=== PATIENT | male | born 1965 | race Caucasian/White ===

== ENCOUNTER 2018-08-18 06:41 | Day surgery (SDC) | payer BC ==
[2018-08-16 14:21] VITALS: BMI 28.2
[~2018-08-18 06:41] MED LIST: LACTATED RINGERS 1,000 ML IV SCH
[2018-08-18 07:22] VITALS: RESP 18; TEMP 97.7
[2018-08-18 07:25] LABS: Glucose,Whole Blood 116 mg/dL (75-99)
[2018-08-18] MEDS ORDERED: LIDOCAINE 1% INJ 10MG/ML (20 ML MDV) ONE (07:37)
[2018-08-18] MEDS ORDERED: PROPOFOL 10 MG/ML 20 ML VIAL IV ONE (07:37)
[2018-08-18] MEDS ORDERED: IV FLUID CONTINUATION 1,000 ML IV ONE (08:00)
--- NOTE | 2018-08-18 08:00 | P.PCN ---
Date of Procedure: 08/18/18 Procedure(s) Performed: BRIEF HISTORY: Patient is a 53-year-old pleasant white male, scheduled for an elective colonoscopy as a part of screening for colorectal neoplasia. PROCEDURE PERFORMED: Colonoscopy with biopsy. PREOPERATIVE DIAGNOSIS: Screening for colon cancer. IV sedation per Anesthesia. PROCEDURE: After informed consent was obtained, the patient, was brought into the endoscopy unit. IV sedation was administered by Anesthesia under continuous monitoring. Digital rectal examination was normal. Initially the Olympus CF- 160 flexible video colonoscope was then inserted in the rectum, gradually advanced into the cecum without any difficulty. Careful examination was performed as the scope was gradually being withdrawn. Ileocecal valve and the appendiceal orifice were visualized and appeared normal. Prep was excellent. Mucosa of the cecum, ascending colon, transverse colon, descending colon, sigmoid colon, and rectum appeared normal. In the mid rectum there was a 2-3 mm sessile polyp that was removed by cold biopsy. Retroflexion was performed in the rectum and no lesions were seen. The patient tolerated the procedure well. IMPRESSION: There was a 2-3 mm sessile mid rectal polyp status post removal by cold biopsy Rest of the colon appeared normal RECOMMENDATIONS: Findings of this examination were discussed with the patient as well as his family. He was advised to follow with the biopsy results and if the biopsy shows adenoma he can have a repeat colonoscopy in 5 years.
[2018-08-18 08:11] LABS: Glucose,Whole Blood 104 mg/dL (75-99)
[2018-08-18 08:28] VITALS: BP 149/90; PULSE 69
== END 2018-08-18 10:02 | disposition home or self-care (01) ==
LOC: ORWHC2ENDO 06:41
PROVIDERS: ATTEND Internal Medicine Gastroenterology
DX: Z12.11 Encounter for screening for malignant neoplasm of colon (principal); K62.1 Rectal polyp; E11.9 Type 2 diabetes mellitus without complications; K21.9 Gastro-esophageal reflux disease without esophagitis; Z79.899 Other long term (current) drug therapy
CPT/HCPCS: 88305; 45380; J2001; J2704

== ENCOUNTER 2018-09-30 05:58 | Inpatient (IN) | payer BC ==
[2018-09-30] MEDS ORDERED: MORPHINE SULFATE 4 MG/ML SYRINGE IV STA (06:23)
[2018-09-30] MEDS ORDERED: ASPIRIN 81 MG PO STA (06:23)
[2018-09-30 06:24] LABS: Basophils # (A) 0.1 k/uL (0-0.2); Basophils % (A) 1 %; Eosinophils # (A) 0.3 k/uL (0-0.7); Eosinophils % (A) 4 %; HCT 44.6 % (39.0-53.0); Lymphocytes # (A) 1.9 k/uL (1.0-4.8); Lymphocytes % (A) 23 %; MCH 29.8 pg (25.0-35.0); MCHC 33.5 g/dL (31.0-37.0); MCV 88.7 fL (80.0-100.0); Mean Platelet Volume 7.5; Monocytes # (A) 0.4 k/uL (0-1.0); Monocytes % (A) 5 %; Neutrophils # (A) 5.3 k/uL (1.3-7.7); Neutrophils % (A) 65 %; Platelet Count 185 k/uL (150-450); RBC 5.02 m/uL (4.30-5.90); RDW 13.1 % (11.5-15.5); WBC 8.1 k/uL (3.8-10.6)
--- NOTE | 2018-09-30 06:27 | ED ---
Chest Pain HPI - General Chief Complaint: Chest Pain Stated Complaint: chest pain Time Seen by Provider: 09/30/18 06:16 Source: patient Mode of arrival: ambulatory Limitations: no limitations - History of Present Illness Initial Comments: This patient is 53-year-old man who presents to be evaluated for chest pain. The pain had started yesterday at approximately noon after he had eaten his lunch at work. He indicates the pain is substernal and radiates to his back. He describes it as aching and it has been intermittent. He states that also when the pain came on he had a coughing episode and did vomit once. Since that time he has not had any associated symptoms, no fever or chills, no cough or dyspnea, no nausea or vomiting. There has been no diaphoresis. The pain has been intermittent, lasting about 30 minutes and then resolving and has recurred a number of times. States pain is currently severe. He has not noted any worsening or relieving factors. MD Complaint: chest pain Onset/Timin -: hour(s) Onset: after eating Pain Location: substernal Pain Radiation: back Severity: severe Quality: aching Consistency: intermittent Improves With: nothing Worsens With: nothing Treatments Prior to Arrival: none - Related Data Home Medications Medication Instructions Recorded Confirmed Insulin Degludec [Tresiba 40 unit SQ HS 08/16/18 09/30/18 Flextouch U-100] Omeprazole 20 mg PO AC-BRKFST 08/16/18 09/30/18 Insulin Aspart [NovoLOG Flexpen] 8 - 10 units SQ AC-TID 09/30/18 09/30/18 Previous Rx's Medication Instructions Recorded Aspirin 81 mg PO DAILY chew 10/02/18 Atorvastatin [Lipitor] 80 mg PO HS #90 tab 10/02/18 Lisinopril [Zestril] 5 mg PO DAILY #90 tab 10/02/18 Metoprolol Tartrate [Lopressor] 25 mg PO BID #180 tab 10/02/18 Nitroglycerin Sl Tabs [Nitrostat] 0.4 mg SUBLINGUAL Q5M PRN #25 tab 10/02/18 Spironolactone [Aldactone] 25 mg PO DAILY #90 tab 10/02/18 Ticagrelor [Brilinta] 90 mg PO BID #180 tab 10/02/18 Allergies Allergy/AdvReac Type Severity Reaction Status Date / Time No Known Allergies Allergy Verified 09/30/18 07:11 Review of Systems ROS Statement: Those systems with pertinent positive or pertinent negative responses have been documented in the HPI. ROS Other: All systems not noted in ROS Statement are negative. Constitutional: Denies: fever, chills Respiratory: Reports: as per HPI, cough. Denies: dyspnea, wheezes, hemoptysis Cardiovascular: Reports: chest pain. Denies: palpitations, orthopnea, edema, syncope Gastrointestinal: Reports: vomiting. Denies: abdominal pain, nausea, diarrhea, melena, hematochezia Genitourinary: Denies: dysuria, hematuria Musculoskeletal: Reports: as per HPI, back pain Skin: Denies: rash Neurological: Denies: headache, weakness, numbness EKG Findings - EKG Results: EKG: interpreted by TRACY, sinus rhythm (Rate 91 bpm), normal axis - Blocks, Economy, Hypertrophy, ST Abn: AV and intraventricular conduction: right bundle branch block (fixed/ intermittent, complete/incomplete) (Incomplete) Repolarization changes or abnormalities: nonspecific abnormality, ST segment, and/or T wave Past Medical History Past Medical History: Diabetes Mellitus History of Any Multi-Drug Resistant Organisms: None Reported Past Surgical History: Orthopedic Surgery Additional Past Surgical History / Comment(s): foot surgery X 2 Past Anesthesia/Blood Transfusion Reactions: No Reported Reaction Past Psychological History: No Psychological Hx Reported Smoking Status: Current every day smoker Past Alcohol Use History: Occasional Past Drug Use History: None Reported - Past Family History Father Family Medical History: Cancer Additional Family Medical History / Comment(s): Throat CA General Exam Limitations: no limitations General appearance: alert, in no apparent distress Head exam: Present: atraumatic, normocephalic Eye exam: Present: normal appearance. Absent: scleral icterus, conjunctival injection ENT exam: Present: normal oropharynx Respiratory exam: Present: normal lung sounds bilaterally. Absent: respiratory distress, wheezes, rales, rhonchi, stridor, chest wall tenderness Cardiovascular Exam: Present: regular rate, normal rhythm, normal heart sounds. Absent: systolic murmur, diastolic murmur, rubs, gallop GI/Abdominal exam: Present: soft. Absent: distended, tenderness, guarding, rebound, mass Extremities exam: Present: normal inspection, normal capillary refill. Absent: pedal edema, calf tenderness Back exam: Present: normal inspection. Absent: CVA tenderness (R), CVA tenderness (L), vertebral tenderness Neurological exam: Present: alert Skin exam: Present: warm, dry, intact, normal color. Absent: rash Course Vital Signs 09/30/18 09/30/18 09/30/18 06:02 06:10 06:43 Temperature 98.4 F Pulse Rate 89 96 Pulse Rate [ 75 Supine] Respiratory 19 18 Rate Blood Pressure 155/90 127/83 O2 Sat by Pulse 98 97 Oximetry 09/30/18 09/30/18 09/30/18 07:24 07:35 07:40 Temperature Pulse Rate 89 89 94 Pulse Rate [ Supine] Respiratory 18 18 18 Rate Blood Pressure 143/100 152/79 137/77 O2 Sat by Pulse 95 97 98 Oximetry Chest Pain [facility] Patient is a 53-year-old man with risk factors for coronary artery disease. He presents with symptoms also concerning for acute coronary syndrome. The patient 's initial ECG is concerning for possible elevation in V1. The patient had been here for 30 minutes and then his pain acutely worsened and a second ECG appears to show ST elevation in lead V1 and V2. The patient's case discussed with Dr. Ferguson, who is on-call and a STEMI alert is activated. Dr. Ferguson requests that we notify Dr. Rivers and he was phoned as well. Critical Care Time Critical Care Time: Yes (40 minutes) Disposition Clinical Impression: Acute coronary syndrome Disposition: ADMITTED IP TO THIS [facility] Condition: Serious
[2018-09-30 06:35] LABS: Partial Thromboplastin Time 26.5 sec (22.0-30.0); Prothrombin Time 9.7 sec (9.0-12.0)
[2018-09-30] MEDS: NITROGLYCERIN SL TABS 0.4 MG TAB SUBLINGUAL STA ×3 (06:38→07:24)
[2018-09-30 06:45] LABS: ALT 26 U/L (21-72); AST 64 U/L (17-59); Albumin 4.1 g/dL (3.5-5.0); Alkaline Phosphatase 75 U/L (38-126); Amylase 37 U/L (30-110); Anion Gap 10 mmol/L; Blood Urea Nitrogen 16 mg/dL (9-20); Calcium 9.1 mg/dL (8.4-10.2); Carbon Dioxide 22 mmol/L (22-30); Chloride 106 mmol/L (98-107); Glucose 159 mg/dL (74-99); Lipase 17 U/L (23-300); Magnesium 1.8 mg/dL (1.6-2.3); Potassium 4.4 mmol/L (3.5-5.1); Sodium 138 mmol/L (137-145); Total Bilirubin 0.9 mg/dL (0.2-1.3); Total Protein 7.3 g/dL (6.3-8.2)
[2018-09-30 07:02] LABS: Troponin I 3.1 ng/mL (0.000-0.034)
[2018-09-30] MEDS ORDERED: HEPARIN SODIUM,PORCINE 5,000 UNIT/ML 1 ML VIAL IV ONE (07:03)
[2018-09-30] MEDS ORDERED: HEPARIN SOD,PORK IN 0.45% NACL 25,000 UNIT in 0.45% NACL 1 500ML.BAG IV SCH (07:15)
--- NOTE | 2018-09-30 07:16 | XR ---
EXAM: XR Chest, 1 View CLINICAL HISTORY: ITS.REASON XR Reason: chest pain TECHNIQUE: Frontal view of the chest. COMPARISON: No relevant prior studies available. FINDINGS: Lungs: Unremarkable. No consolidation. Pleural space: Unremarkable. No pneumothorax. Heart: Unremarkable. No cardiomegaly. Mediastinum: Unremarkable. Bones/joints: Unremarkable. IMPRESSION: No acute findings.
[2018-09-30 07:17] LABS: Glucose,Whole Blood 254 mg/dL (75-99)
[2018-09-30] MEDS ORDERED: MORPHINE SULFATE 4 MG/ML SYRINGE IVP STA (07:33)
[2018-09-30] MEDS ORDERED: IV FLUID CONTINUATION 1,000 ML IV ONE (07:45)
[2018-09-30] MEDS ORDERED: LIDOCAINE 1% INJ 10MG/ML (20 ML MDV) ONE (07:48)
[2018-09-30] MEDS ORDERED: VERAPAMIL 2.5 MG/ML 2 ML AMP ONE (07:59)
[2018-09-30] MEDS ORDERED: MIDAZOLAM 2 MG/2 ML VIAL ONE ×2 (07:59→08:48)
[2018-09-30] MEDS ORDERED: MIDAZOLAM 2 MG/2 ML VIAL IVP ONE ×2 (08:03→08:49)
[2018-09-30] MEDS ORDERED: HEPARIN SODIUM 1,000 UN/ML (10ML VL) ONE (08:06)
[2018-09-30] MEDS ORDERED: LIDOCAINE 1% INJ 10MG/ML (20 ML MDV) SQ ONE (08:06)
[2018-09-30] MEDS ORDERED: VERAPAMIL SYRINGE (5 MG/10 ML) INTRAARTER ONE (08:08)
[2018-09-30] MEDS ORDERED: BIVALIRUDIN BOLUS 250 MG/50 ML IV ONE (08:18)
[2018-09-30] MEDS ORDERED: BIVALIRUDIN 250 MG in SODIUM CHLORIDE 0.9% 50 ML IV ONE (08:19)
[2018-09-30] MEDS ORDERED: NITROGLYCERIN 1000MCG/10ML SYRINGE INTRACORON ONE (08:34)
[2018-09-30] MEDS: NITROGLYCERIN 1000MCG/10ML SYRINGE INTRACORON ONE ×2 (08:35→08:41)
[2018-09-30] MEDS ORDERED: IOPAMIDOL-370 125ML BTL INJ ONE (08:50)
[2018-09-30] MEDS ORDERED: TICAGRELOR 90 MG TAB ONE (08:55)
[2018-09-30] MEDS ORDERED: IOPAMIDOL-370 100ML BTL INJ ONE (09:02)
[2018-09-30] MEDS ORDERED: TICAGRELOR 90 MG TAB PO ONE (09:02)
[2018-09-30] MEDS ORDERED: ZOLPIDEM 5 MG TAB PO PRN (09:12)
[2018-09-30] MEDS ORDERED: ATROPINE SULFATE 0.1 MG/ML 10ML SYRINGE IV PRN (09:12)
[2018-09-30] MEDS ORDERED: RX INFO: IV CONTRAST WAS GIVEN 1 EACH MISC MISCELLANE PRN (09:12)
[2018-09-30] MEDS ORDERED: MAG HYDROX/AL HYDROX/SIMETH 30 ML CUP PO PRN (09:12)
[2018-09-30] MEDS ORDERED: NITROGLYCERIN SL TABS 0.4 MG TAB SUBLINGUAL PRN (09:12)
[2018-09-30] MEDS ORDERED: SODIUM CHLORIDE 0.9% 1,000 ML IV SCH (09:15)
--- NOTE | 2018-09-30 09:28 | P.CRDCN ---
History of Present Illness Consult date: 09/30/18 Chief complaint: Chest discomfort History of present illness: This is a 53-year-old gentleman with a past medical history significant for diabetes, hypertension, dyslipidemia, presented to the emergency room complaining of chest discomfort. The patient was in his usual state of health until last night when he started experiencing chest discomfort, in the mid chest, described as a shooting pain, radiating to his back, as well as radiating to his left elbow. The pain was of variable duration sometimes last for few minutes and sometimes for half an hour. No associated symptoms of shortness of breath, dizziness, nausea or vomiting, heart racing or fluttering, or syncope. 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 Because of the ongoing chest discomfort, and the EKG which showing about [address] segment elevation in V1 and V2, the patient was taken to the cardiac laborer hoisting. He underwent a heart catheterization that revealed subtotally occluded mid left anterior descending artery and he underwent successful stenting of the LAD using 2 drug-eluting stents with a good angiographic results by the end and without any complication. By the end of the procedure, the patient was chest pain-free. The patient does have a past medical history significant for diabetes and currently he is on insulin as well as hypertension and dyslipidemia. He did have surgery on his left foot after he had left foot crushed in the past. Unfortunately he smoke about one pack of cigarettes every day. He does have fairly significant family history of coronary artery disease with his mother who did have an open heart surgery in her 40s. Past Medical History Past Medical History: Diabetes Mellitus History of Any Multi-Drug Resistant Organisms: None Reported Past Surgical History: Orthopedic Surgery Additional Past Surgical History / Comment(s): foot surgery X 2 Past Anesthesia/Blood Transfusion Reactions: No Reported Reaction Past Psychological History: No Psychological Hx Reported Smoking Status: Current every day smoker Past Alcohol Use History: Occasional Past Drug Use History: None Reported - Past Family History Father Family Medical History: Cancer Additional Family Medical History / Comment(s): Throat CA Medications and Allergies Home Medications Medication Instructions Recorded Confirmed Type Insulin Degludec [Tresiba 40 unit SQ HS 08/16/18 09/30/18 History Flextouch U-100] Omeprazole 20 mg PO AC-BRKFST 08/16/18 09/30/18 History Atorvastatin [Lipitor] 20 mg PO HS 09/30/18 09/30/18 History Insulin Aspart [NovoLOG Flexpen] 8 - 10 units SQ AC-TID 09/30/18 09/30/18 History Allergies Allergy/AdvReac Type Severity Reaction Status Date / Time No Known Allergies Allergy Verified 09/30/18 07:11 Physical Exam Vitals: Vital Signs Temp Pulse Pulse Resp BP Pulse Ox 09/30/18 07:40 94 18 137/77 98 09/30/18 07:35 89 18 152/79 97 09/30/18 07:24 89 18 143/100 95 09/30/18 06:43 96 18 127/83 97 09/30/18 06:10 75 09/30/18 06:02 98.4 F 89 19 155/90 98 Intake and Output 09/29/18 09/30/18 09/30/18 22:59 06:59 14:59 Intake Total 290.2 Balance 290.2 Intake: IV 290.2 Other: Weight 99.79 kg - Constitutional General appearance: no acute distress - Respiratory Respiratory: bilateral: CTA - Cardiovascular Rhythm: regular Heart sounds: normal: S1, S2 Results 09/30/18 06:00 09/30/18 06:00 Cardiac Enzymes 09/30/18 09/30/18 Range/Units 06:00 06:00 AST 64 H (17-59) U/L CK-MB (CK-2) 27.0 H (0.0-2.4) ng/mL Troponin I 3.100 H* (0.000-0.034) ng/mL Coagulation 09/30/18 Range/Units 06:00 PT 9.7 (9.0-12.0) sec APTT 26.5 (22.0-30.0) sec CBC 09/30/18 Range/Units 06:00 WBC 8.1 (3.8-10.6) k/uL RBC 5.02 (4.30-5.90) m/uL Hgb 15.0 (13.0-17.5) gm/dL Hct 44.6 (39.0-53.0) % Plt Count 185 (150-450) k/uL Comprehensive Metabolic Panel 09/30/18 Range/Units 06:00 Sodium 138 (137-145) mmol/L Potassium 4.4 (3.5-5.1) mmol/L Chloride 106 (98-107) mmol/L Carbon Dioxide 22 (22-30) mmol/L BUN 16 (9-20) mg/dL Creatinine 0.86 (0.66-1.25) mg/dL Glucose 159 H (74-99) mg/dL Calcium 9.1 (8.4-10.2) mg/dL AST 64 H (17-59) U/L ALT 26 (21-72) U/L Alkaline Phosphatase 75 (38-126) U/L Total Protein 7.3 (6.3-8.2) g/dL Albumin 4.1 (3.5-5.0) g/dL Current Medications Generic Name Dose Route Start Last Admin Trade Name Freq PRN Reason Stop Dose Admin Al Hydroxide/Mg Hydroxide 30 ml 09/30/18 09:12 Maalox PO Q4HR PRN Heartburn Aspirin 81 mg 10/01/18 09:00 Aspirin PO DAILY [facility] Atorvastatin Calcium 80 mg 09/30/18 21:00 Lipitor PO HS [facility] Atropine Sulfate 0.5 mg 09/30/18 09:12 Atropine IV ONCE PRN Symptomatic Bradycardia Heparin Sodium/Sodium Chloride 500 mls @ 19.99 mls/hr 09/30/18 07:15 07:21 25,000 unit/ Sodium Chloride IV 10.02 units/kg/hr .Q24H BEN 19.99 mls/hr Administration Protocol 10.02 UNITS/KG/HR Sodium Chloride 1,000 mls @ 100 mls/hr 09/30/18 09:15 Saline 0.9% IV 09/30/18 15:16 .Q10H [facility] Lisinopril 5 mg 10/01/18 09:00 Zestril PO DAILY [facility] Metoprolol Tartrate 25 mg 09/30/18 21:00 Lopressor PO BID [facility] Miscellaneous Information 1 each 09/30/18 09:12 Rx Info: Iv Contrast Was Given MISCELLANE 10/02/18 09:12 DAILY PRN Per Protocol Nitroglycerin 0.4 mg 09/30/18 09:12 Nitrostat SUBLINGUAL Q5M PRN Chest Pain Ticagrelor 90 mg 09/30/18 21:00 Brilinta PO BID [facility] Zolpidem Tartrate 5 mg 09/30/18 09:12 Ambien PO HS PRN Insomnia Intake and Output 09/29/18 09/30/18 09/30/18 22:59 06:59 14:59 Intake Total 290.2 Balance 290.2 Intake: IV 290.2 Other: Weight 99.79 kg 09/30/18 06:00 09/30/18 06:00 Assessment and Plan Assessment: Assessment #1 acute coronary syndrome #2 subtotally occluded mid LAD #3 status post stenting of the mid LAD #4 multiple risk factors including diabetes, hypertension, dyslipidemia #5 significant history of smoking #6 significant family history of coronary artery disease Plan #1 dual antiplatelet therapy #2 anti-ischemic medications #3 high-intensity statin #4 an echocardiogram was Doppler #5 follow-up with the patient. Thank you for allowing us participate in his care
[2018-09-30 10:23] LABS: Glucose,Whole Blood 199 mg/dL (75-99)
--- NOTE | 2018-09-30 11:36 | CC ---
CARDIAC CATHETERIZATION REPORT DATE OF SERVICE: September 30, 2018 PERFORMING PHYSICIAN: Gagan Rivers MD, material mixer. PROCEDURE PERFORMED: 1. Selective right and left coronary angiogram. 2. Successful stenting of the mid LAD using 2.75 x 18 and 2.25 x 15 mm Xience drug- eluting stent with good angiographic results and reduction of stenosis from 99% to 0%. 3. Left heart catheterization. 4. Left ventriculography. INDICATION: This is a pleasant 53-year-old gentleman who is diabetic as well as smoker as well as does have significant family history of coronary artery disease, presented to the emergency room complaining of chest discomfort that started last night. The patient continues to have chest discomfort and ischemic ST changes. Because of that, a heart catheterization emergently was advised. APPROACH: Right radial artery. COMPLICATION: None. LEVEL OF SEDATION: Moderate with sedation length of 59 minutes. PROCEDURE DESCRIPTION: After obtaining an informed consent, the patient was brought to the cardiac photo lab technician. The right radial artery was cannulated using micropuncture technique, the micropuncture wire passed easily then I placed a 6-Welsh sheath 11 cm in the right radial artery. After that I gave the patient 2 mg of verapamil IA. Selective right and left coronary angiogram was performed using JR4 catheter for the right coronary artery and JL3.5 guide for the left coronary system. After that I did intervene on the LAD. Please see a separate paragraph for that. Subsequently I did left heart catheterization and left ventriculography using 5-Welsh pigtail catheter. The procedure was completed without any complication. SELECTIVE CORONARY ANGIOGRAM: 1. The right coronary artery is a large caliber vessel and it is a dominant vessel. The RCA in the proximal portion appeared to have mild disease only. The mid RCA is normal. RCA distally appeared to be angiographically normal and bifurcates into PDA and PLV branches both appear to have mild disease only. 2. The left main is angiographically normal and is a short left main. It bifurcates into left circumflex, ramus intermedius, and left anterior descending artery. 3. Left circumflex is a large caliber vessel and it is a nondominant vessel and appeared to be angiographically normal. In the midportion gives rise into OM branch which is intermediate caliber vessel and seems to be angiographically normal. 4. The ramus intermedius is a large caliber vessel. It appears to have mild disease in the midportion. It distally bifurcates into 2 subbranches, both appeared to be angiographically normal. 5. The LAD: The proximal LAD appeared to have mild disease only. The mid LAD by the bifurcation of a large diagonal branch has a critical lesion appeared to be in the range of 99.9%. The LAD after that has a long tubular lesion appeared to be in the range of 80%-90%. The first diagonal branch appeared to be angiographically normal. The LAD distally appeared to be normal as well and becomes small to medium to become medium caliber vessel. PCI OF THE LAD: Anticoagulation was initiated using Angiomax. After engaging the LAD with JL 3.5 guiding catheter, I attempted advancing a wire to the LAD and that was a whisper wire, but the wire kept going into the ramus intermedius. I left the wire into ramus and get another whisper wire going the LAD. I had a hard time crossing the lesion in the mid LAD because of the angulation of the LAD after the diagonal. Finally I was able to get the wire to distal LAD. I did balloon angioplasty initially using 2.5 x 12 mm balloon and after that I deployed a 2.75 x 18 mm Xience drug-eluting stent where the stent was positioned under fluoroscopy guidance and deployed under its nominal pressure. After that, the following angiogram showed the lesion distal to the stent appeared to be concerning and it did not get better after I gave IC nitroglycerin. Because of that, I decided to deploy another stent. So I did deploy a 2.25 x 15 mm stent distal to the previous stent where the second stent was positioned under fluoroscopy guidance and deployed under its nominal pressure. The following angiogram showed good angiographic result. After that, I did post dilate the proximal stent using 3.0 mm NC balloon which was inflated under 18 atmospheres. The following angiogram showed good angiographic results with good flow in the LAD. The procedure was completed without any complication. HEMODYNAMICS: The left ventricular end-diastolic pressure was 18 mmHg without any significant gradient across the aortic valve. LEFT VENTRICULOGRAPHY: Left ventriculography was performed in the DILLARD projection and using a power injection. The left ventricular systolic function is impaired with EF around 35% with anterior and anteroapical and inferoapical hypokinesia. CONCLUSION: 1. Acute non ST elevation myocardial infarction. 2. Subtotally occluded mid left anterior descending artery. 3. Successful stenting of the mid LAD using 2.75 x 18 and 2.25 x 15 mm Xience drug- eluting stent with good angiographic results and reduction of stenosis from 99% to 0%. 4. Impaired left ventricular function with EF around 35% with anterior, anteroapical, and inferoapical hypokinesia. POSTPROCEDURE MANAGEMENT: 1. Dual anti-platelet therapy. 2. Risk factors modifications. 3. Follow up with the patient. ABIEL / KYLIE: [id number] /
--- NOTE | 2018-09-30 11:42 | LTR ---
DATE OF SERVICE: September 30, [address] Benítez: Mr. Aurelio Torres presented to the emergency room at [facility] with chest discomfort and was diagnosed with acute coronary syndrome. He underwent heart catheterization and was found to have subtotally occluded mid LAD which was stented with good results by the end. Thank you for allowing us to participate in his care and please do not hesitate to call if you have any questions or concerns. Sincerely, ABIEL / RADAMESN: [id number] /
[2018-09-30 12:08] LABS: Glucose,Whole Blood 197 mg/dL (75-99)
[2018-09-30] MEDS: NOVOLOG FLEXPEN SQ SCH ×2 (14:17→17:42)
[2018-09-30 17:10] LABS: Glucose,Whole Blood 175 mg/dL (75-99)
--- NOTE | 2018-09-30 17:32 | P.HPIM ---
History of Present Illness this is a pleasant 53 years old male with past medical history of diabetes mellitus on insulin therapy, and hyperlipidemia. Her presents because of chest pain., Patient states that his chest pain was centrally radiating to the back started of one-day duration, it was started after lunch that comes and goes was severe at 60/10, went up to 8-9/10 on admission however it is down now20/10 answers old. failed sharp. Associated with some elbow pain and numbness in the fingers.associated with vomiting once yesterday. No sweating, dyspnea or dizziness.patient has been evaluated by cardiology team and found to have acute coronary syndrome. He is a status post cardiac cath today which showing LAD artery disease, status post stenting.ALSO SHOWS HIM. eJECTION FRACTION AROUND 35%. Review of Systems CONSTITUTIONAL: No fever, no malaise, no fatigue. HEENT: No recent visual problems or hearing problems. Denied any sore throat. CARDIOVASCULAR: No orthopnea, PND, no palpitations, no syncope. PULMONARY: No shortness of breath, no cough, no hemoptysis. GASTROINTESTINAL: No diarrhea, no nausea, no vomiting, no abdominal pain. Normoactive bowel sounds. NEUROLOGICAL: No headaches, no weakness, no numbness. HEMATOLOGICAL: Denies any bleeding or petechiae. GENITOURINARY: Denies any burning micturition, frequency, or urgency. MUSCULOSKELETAL/RHEUMATOLOGICAL: Denies any joint pain, swelling, or any muscle pain. ENDOCRINE: Denies any polyuria or polydipsia. Past Medical History Past Medical History: Diabetes Mellitus History of Any Multi-Drug Resistant Organisms: None Reported Past Surgical History: Orthopedic Surgery Additional Past Surgical History / Comment(s): foot surgery X 2 Past Anesthesia/Blood Transfusion Reactions: No Reported Reaction Past Psychological History: No Psychological Hx Reported Smoking Status: Current every day smoker Past Alcohol Use History: Occasional Past Drug Use History: None Reported - Past Family History Father Family Medical History: Cancer Additional Family Medical History / Comment(s): Throat CA Medications and Allergies Home Medications Medication Instructions Recorded Confirmed Type Insulin Degludec [Tresiba 40 unit SQ HS 08/16/18 09/30/18 History Flextouch U-100] Omeprazole 20 mg PO AC-BRKFST 08/16/18 09/30/18 History Atorvastatin [Lipitor] 20 mg PO HS 09/30/18 09/30/18 History Insulin Aspart [NovoLOG Flexpen] 8 - 10 units SQ AC-TID 09/30/18 09/30/18 History Allergies Allergy/AdvReac Type Severity Reaction Status Date / Time No Known Allergies Allergy Verified 09/30/18 07:11 Physical Exam Vitals: Vital Signs Temp Pulse Pulse Pulse Resp BP BP 09/30/18 10:05 83 16 140/78 09/30/18 09:50 80 16 129/77 09/30/18 09:35 83 16 127/85 09/30/18 07:40 94 18 137/77 09/30/18 07:35 89 18 152/79 09/30/18 07:24 89 18 143/100 09/30/18 06:43 96 18 127/83 09/30/18 06:10 75 09/30/18 06:02 98.4 F 89 19 155/90 Pulse Ox 09/30/18 10:05 96 09/30/18 09:50 09/30/18 09:35 98 09/30/18 07:40 98 09/30/18 07:35 97 09/30/18 07:24 95 09/30/18 06:43 97 09/30/18 06:10 09/30/18 06:02 98 Intake and Output 09/29/18 09/30/18 09/30/18 22:59 06:59 14:59 Intake Total 290.2 Output Total 500 Balance -209.8 Intake: IV 290.2 Output: Urine 500 Other: Weight 99.79 kg GENERAL: The patient is alert and oriented x3, not in any acute distress. Well developed, well nourished. HEENT: Pupils are round and equally reacting to light. EOMI. No scleral icterus. No conjunctival pallor. Normocephalic, atraumatic. No pharyngeal erythema. No thyromegaly. CARDIOVASCULAR: S1 and S2 present. No murmurs, rubs, or gallops. PULMONARY: Chest is clear to auscultation, no wheezing or crackles. ABDOMEN: Soft, nontender, nondistended, normoactive bowel sounds. No palpable organomegaly. MUSCULOSKELETAL: No joint swelling or deformity. EXTREMITIES: No cyanosis, clubbing, or pedal edema. NEUROLOGICAL: Gross neurological examination did not reveal any focal deficits. SKIN: No rashes. Results CBC & Chem 7: 09/30/18 06:00 09/30/18 06:00 Labs: Abnormal Lab Results - Last 24 Hours (Table) 09/30/18 09/30/18 09/30/18 Range/Units 06:00 06:00 07:13 Glucose 159 H (74-99) mg/dL POC Glucose (mg/dL) 254 H (75-99) mg/dL AST 64 H (17-59) U/L Total Creatine Kinase 511 H (55-170) U/L CK-MB (CK-2) 27.0 H (0.0-2.4) ng/mL Troponin I 3.100 H* (0.000-0.034) ng/mL Lipase 17 L (23-300) U/L 09/30/18 Range/Units 10:18 Glucose (74-99) mg/dL POC Glucose (mg/dL) 199 H (75-99) mg/dL AST (17-59) U/L Total Creatine Kinase (55-170) U/L CK-MB (CK-2) (0.0-2.4) ng/mL Troponin I (0.000-0.034) ng/mL Lipase (23-300) U/L Assessment and Plan Assessment: non-STEMI LAD coronary artery disease, status post cardiac cath and stenting impairment systolic function with ejection fraction 35% with no dyspnea. history of diabetes mellitus History of hyperlipidemia Plan: this is a pleasant 53 years old male who presents with non-STEMI. Status post stenting of LAD. Continue with dual antiplatelet therapy. Cardiology input is appreciated. Labs and medication were reviewed.. Continue same treatment. Continue with symptomatic treatment. Resume home medication. Monitor lytes and vitals. DVT and GI prophylaxis. Further recommendations of the clinical course of the patient DVT prophylaxis: Subcutaneous heparin GI Prophylaxis: ppi Prognosis is guarded
[2018-09-30] MEDS: ATORVASTATIN 80 MG TAB PO SCH (20:30)
[2018-09-30] MEDS: METOPROLOL TARTRATE 25 MG TAB PO SCH (20:30)
[2018-09-30] MEDS: HEPARIN SODIUM,PORCINE 5,000 UNIT/ML 1 ML VIAL SQ SCH (20:30)
[2018-09-30] MEDS: TICAGRELOR 90 MG TAB PO SCH (20:30)
[2018-09-30] MEDS: TRESIBA U SQ SCH (20:35)
[2018-09-30] MEDS ORDERED: INSULIN DETEMIR 100 UNIT/ML 10 ML VIAL SQ SCH (21:00)
[2018-09-30 21:06] LABS: Glucose,Whole Blood 124 mg/dL (75-99)
[2018-10-01] MEDS: PANTOPRAZOLE 40 MG TABLET PO SCH (06:29)
[2018-10-01 06:30] LABS: Glucose,Whole Blood 103 mg/dL (75-99)
[2018-10-01 07:02] LABS: Anion Gap 7 mmol/L; Blood Urea Nitrogen 11 mg/dL (9-20); Calcium 8.9 mg/dL (8.4-10.2); Carbon Dioxide 25 mmol/L (22-30); Chloride 108 mmol/L (98-107); Glucose 109 mg/dL (74-99); Potassium 4.3 mmol/L (3.5-5.1); Sodium 140 mmol/L (137-145)
[2018-10-01] MEDS: METOPROLOL TARTRATE 25 MG TAB PO SCH ×2 (08:09→20:21)
[2018-10-01] MEDS: TICAGRELOR 90 MG TAB PO SCH ×2 (08:10→20:21)
[2018-10-01] MEDS: LISINOPRIL 5 MG TAB PO SCH (08:10)
[2018-10-01] MEDS: ASPIRIN 81 MG PO SCH (08:10)
[2018-10-01] MEDS: HEPARIN SODIUM,PORCINE 5,000 UNIT/ML 1 ML VIAL SQ SCH ×2 (08:12→20:21)
[2018-10-01] MEDS: NOVOLOG FLEXPEN SQ SCH ×3 (08:17→18:01)
[2018-10-01] MEDS: SPIRONOLACTONE 25 MG TAB PO SCH (08:49)
[2018-10-01] MEDS ORDERED: ASPIRIN 325 MG TAB PO SCH (09:00)
[2018-10-01] MEDS ORDERED: LISINOPRIL 10 MG TAB PO SCH (09:00)
[2018-10-01 11:17] LABS: Glucose,Whole Blood 117 mg/dL (75-99)
--- NOTE | 2018-10-01 12:31 | PN ---
PROGRESS NOTE Mr. Torres is a 53-year-old male who presented yesterday with an acute myocardial infarction, underwent cardiac catheterization and stenting of his LAD by Dr. Rivers. He is feeling well this morning. Denying any chest pain. He denies any dizziness. No palpitation. He denies any recurrent symptoms. He has been ambulating without difficulty. He is in sinus mechanism and continues to be on aspirin 81 mg daily, Brilinta 90 mg twice a day, Lipitor 80 mg daily, lisinopril 5 mg daily, metoprolol tartrate 25 mg twice a day, spironolactone 25 mg daily. PHYSICAL EXAMINATION: Blood pressure 130/70 with a heart rate in the 70s and 80s. LUNGS: Clear. HEART: Regular rate and rhythm S1, S2. No S3. No rub. ABDOMEN: Soft nontender. EXTREMITIES: No edema. Right radial pulse is intact. LAB DATA: Lab data revealed a troponin of 3.1, 9.7 and then 18.8. BUN and creatinine 11 and 0.8 potassium 4.3. EKG revealed an evolution of an anterior wall myocardial infarction. IMPRESSION: 1. Status post anterior myocardial infarction and stenting of the left anterior descending coronary artery. 2. Diabetes. 3. Hyperlipidemia. RECOMMENDATIONS: We will obtain echocardiogram today. Increase his level activity. Follow his renal function. Depending on his progress, further recommendations will be made. If he is stable, he may be able to be discharged home in 24-48 hours. MMODL / RADAMESN: [id number] /
--- NOTE | 2018-10-01 15:11 | P.PN ---
Subjective this is a pleasant 53 years old male with past medical history of diabetes mellitus on insulin therapy, and hyperlipidemia. Her presents because of chest pain., Patient states that his chest pain was centrally radiating to the back started of one-day duration, it was started after lunch that comes and goes was severe at 60/10, went up to 8-9/10 on admission however it is down now20/10 answers old. failed sharp. Associated with some elbow pain and numbness in the fingers.associated with vomiting once yesterday. No sweating, dyspnea or dizziness.patient has been evaluated by cardiology team and found to have acute coronary syndrome. He is a status post cardiac cath today which showing LAD artery disease, status post stenting.ALSO SHOWS HIM. eJECTION FRACTION AROUND 35%. 10/01/2018 Patient was sitting on the chair. He feels better and back to his usual state. He denies chest pain currently, no dyspnea. No change in urine or bowel habits. No fever. He is on dual antiplatelet therapy. Patient has been evaluated by development mechanic today and possible discharge in 24-48 hours, patient himself is wanted to be discharged today however he is agreeable to send the hospital Objective - Vital Signs Vital signs: Vital Signs Temp 98.1 F 10/01/18 11:45 Pulse 75 10/01/18 11:45 Resp 16 10/01/18 11:45 BP 119/72 10/01/18 11:45 Pulse Ox 98 10/01/18 11:45 Intake & Output 09/30/18 10/01/18 10/01/18 18:59 06:59 18:59 Intake Total 770.2 300 480 Output Total 500 700 Balance 270.2 300 -220 Weight 99.79 kg 99.2 kg Intake: IV 290.2 Oral 480 300 480 Output: Urine 500 700 Other: Voiding Method Toilet # Voids 2 - Exam GENERAL: The patient is alert and oriented x3, not in any acute distress. Well developed, well nourished. HEENT: Pupils are round and equally reacting to light. EOMI. No scleral icterus. No conjunctival pallor. Normocephalic, atraumatic. No pharyngeal erythema. No thyromegaly. CARDIOVASCULAR: S1 and S2 present. No murmurs, rubs, or gallops. PULMONARY: Chest is clear to auscultation, no wheezing or crackles. ABDOMEN: Soft, nontender, nondistended, normoactive bowel sounds. No palpable organomegaly. MUSCULOSKELETAL: No joint swelling or deformity. EXTREMITIES: No cyanosis, clubbing, or pedal edema. NEUROLOGICAL: Gross neurological examination did not reveal any focal deficits. SKIN: No rashes. - Labs CBC & Chem 7: 09/30/18 06:00 10/01/18 06:26 Labs: Abnormal Lab Results - Last 24 Hours (Table) 09/30/18 09/30/18 09/30/18 Range/Units 17:06 18:57 20:35 Chloride (98-107) mmol/L Glucose (74-99) mg/dL POC Glucose (mg/dL) 175 H 124 H (75-99) mg/dL Troponin I 18.800 H* (0.000-0.034) ng/mL 10/01/18 10/01/18 10/01/18 Range/Units 06:26 06:29 11:07 Chloride 108 H (98-107) mmol/L Glucose 109 H (74-99) mg/dL POC Glucose (mg/dL) 103 H 117 H (75-99) mg/dL Troponin I (0.000-0.034) ng/mL Assessment and Plan Assessment: non-STEMI LAD coronary artery disease, status post cardiac cath and stenting impairment systolic function with ejection fraction 35% with no dyspnea. history of diabetes mellitus History of hyperlipidemia Plan: this is a pleasant 53 years old male who presents with non-STEMI. Status post stenting of LAD. Continue with dual antiplatelet therapy. Cardiology input is appreciated. Labs and medication were reviewed.. Continue same treatment. Continue with symptomatic treatment. Resume home medication. Monitor lytes and vitals. DVT and GI prophylaxis. Further recommendations of the clinical course of the patient DVT prophylaxis: Subcutaneous heparin GI Prophylaxis: ppi Prognosis is guarded
[2018-10-01 16:07] VITALS: BMI 28.8
[2018-10-01 16:50] LABS: Glucose,Whole Blood 115 mg/dL (75-99)
--- NOTE | 2018-10-01 16:57 | ECHOF ---
Referral Reason:acs MEASUREMENTS -------- HEIGHT: 185.4 cm WEIGHT: 98.9 kg BP: 123/6 RVIDd: 3.4 cm (< 3.3) IVSd: 1.1 cm (0.6 - 1.1) LVIDd: 5.5 cm (3.9 - 5.3) LVPWd: 1.1 cm (0.6 - 1.1) IVSs: 1.6 cm LVIDs: 3.8 cm LVPWs: 1.7 cm LA Diam: 3.2 cm (2.7 - 3.8) LAESV Index (A-L): 16.83 ml/m Ao Diam: 4.1 cm (2.0 - 3.7) AV Cusp: 2.5 cm (1.5 - 2.6) MV EXCURSION: 13.189 mm (> 18.000) MV EF SLOPE: 41 mm/s (70 - 150) EPSS: 1.4 cm MV E Felix: 0.77 m/s MV DecT: 245 ms MV A Felix: 0.95 m/s MV E/A Ratio: 0.81 FINDINGS -------- Sinus rhythm. This was a technically good study. The left ventricular size is normal. There is borderline concentric left ventricular hypertrophy. Overall left ventricular systolic function is mild-moderately impaired with, an EF between 40 - 45 % . Mid anterior LV wall motion is hypokinetic. Mid anteroseptal LV wall motion is hypokinetic. Apical anterior LV wall motion is hypokinetic. Apical septum LV wall motion is hypokinetic. The right ventricle is mildly enlarged. Normal LA size by volume 22+/-6 ml/m2. The right atrium is normal in size. The aortic valve is trileaflet, and appears structurally normal. No aortic stenosis or regurgitation. The mitral valve is normal. No mitral regurgitation. The tricuspid valve appears structurally normal. No regurgitation noted There is no pulmonic regurgitation present. The aortic root is dilated measuring 4.1cm. Normal inferior vena cava with normal inspiratory collapse consistent with estimated right atrial pre ssure of 5 mmHg. There is no pericardial effusion. CONCLUSIONS -------- 1. Sinus rhythm. 2. This was a technically good study. 3. The left ventricular size is normal. 4. There is borderline concentric left ventricular hypertrophy. 5. Overall left ventricular systolic function is mild-moderately impaired with, an EF between 40 - 45 %. 6. Mid anterior LV wall motion is hypokinetic. 7. Mid anteroseptal LV wall motion is hypokinetic. 8. Apical anterior LV wall motion is hypokinetic. 9. Apical septum LV wall motion is hypokinetic. 10. The right ventricle is mildly enlarged. 11. Normal LA size by volume 22+/-6 ml/m2. 12. The aortic valve is trileaflet, and appears structurally normal. No aortic stenosis or regurgitat ion. 13. The mitral valve is normal. 14. The tricuspid valve appears structurally normal. 15. There is no pulmonic regurgitation present. 16. The aortic root is dilated measuring 4.1cm. 17. Normal inferior vena cava with normal inspiratory collapse consistent with estimated right atrial pressure of 5 mmHg. 18. There is no pericardial effusion. ACCESS COORDINATOR: Ju Wells RDCS
[2018-10-01 20:20] LABS: Glucose,Whole Blood 92 mg/dL (75-99)
[2018-10-01] MEDS: ATORVASTATIN 80 MG TAB PO SCH (20:21)
[2018-10-01] MEDS: TRESIBA U SQ SCH (20:21)
[2018-10-01 20:55] VITALS: RESP 18
[2018-10-02 05:44] LABS: Glucose,Whole Blood 59 mg/dL (75-99)
[2018-10-02] MEDS: PANTOPRAZOLE 40 MG TABLET PO SCH (06:10)
[2018-10-02 06:19] LABS: Glucose,Whole Blood 97 mg/dL (75-99)
[2018-10-02 07:20] LABS: Anion Gap 9 mmol/L; Blood Urea Nitrogen 12 mg/dL (9-20); Calcium 8.8 mg/dL (8.4-10.2); Carbon Dioxide 26 mmol/L (22-30); Chloride 105 mmol/L (98-107); Glucose 123 mg/dL (74-99); Sodium 140 mmol/L (137-145)
[2018-10-02] MEDS: NOVOLOG FLEXPEN SQ SCH ×2 (08:48→12:57)
[2018-10-02] MEDS: SPIRONOLACTONE 25 MG TAB PO SCH (08:52)
[2018-10-02] MEDS: METOPROLOL TARTRATE 25 MG TAB PO SCH (08:53)
[2018-10-02] MEDS: LISINOPRIL 5 MG TAB PO SCH (08:53)
[2018-10-02] MEDS: TICAGRELOR 90 MG TAB PO SCH (08:53)
[2018-10-02] MEDS: ASPIRIN 81 MG PO SCH (08:53)
[2018-10-02] MEDS: HEPARIN SODIUM,PORCINE 5,000 UNIT/ML 1 ML VIAL SQ SCH (08:53)
--- NOTE | 2018-10-02 09:53 | PN ---
PROGRESS NOTE Mr. Torres is a 53-year-old male who presented with an acute anterior myocardial infarction, underwent stenting of his LAD. He is doing well this morning, ambulating without difficulty. Denying any chest pain. No dizziness. No palpitation. He underwent an echocardiogram yesterday that revealed an ejection fraction of 40-45% with anteroapical wall hypokinesis. He continues to be at this time on aspirin once a day, Lipitor 80 mg daily, lisinopril 5 mg daily, metoprolol tartrate 25 mg twice a day, spironolactone 25 mg daily and Brilinta 90 mg twice a day. PHYSICAL EXAMINATION: Blood pressure 128/60 with a heart rate in the 80s. LUNGS: Clear. HEART: Regular rate and rhythm S1, S2. No S3. No rub. ABDOMEN: Soft, nontender. EXTREMITIES: No edema. LAB DATA: BUN and creatinine 12 and 0.87, potassium 4.0. IMPRESSION: 1. Status post anterior wall myocardial infarction stenting of the LAD. 2. Ischemic cardiomyopathy. 3. Hypertension. 4. Diabetes. 5. Hyperlipidemia. RECOMMENDATIONS: Patient will be discharged home today and followed as an outpatient with Dr. Rivers. MMZULEYMA / KYLIE: [id number] /
[2018-10-02 11:07] LABS: Glucose,Whole Blood 128 mg/dL (75-99)
[2018-10-02 11:14] VITALS: BP 110/67; PULSE 72; TEMP 97.6
== END 2018-10-02 14:40 | disposition home or self-care (01) | DRG 247 ==
LOC: EC 05:58 → 2SICU 07:25 → 3SCARD 10:37
PROVIDERS: ADMIT Hospitalist; ATTEND Hospitalist
PROC: B2111ZZ Fluoroscopy of Multiple Coronary Arteries using Low Osmolar Contrast (ICD-10-PCS; 2018-09-30)
PROC: B2151ZZ Fluoroscopy of Left Heart using Low Osmolar Contrast (ICD-10-PCS; 2018-09-30)
PROC: 027034Z Dilation of Coronary Artery, One Artery with Drug-eluting Intraluminal Device, Percutaneous Approach (ICD-10-PCS; principal; 2018-09-30 07:45)
PROC: 4A023N7 Measurement of Cardiac Sampling and Pressure, Left Heart, Percutaneous Approach (ICD-10-PCS; 2018-09-30 07:45)
DX: I21.4 Non-ST elevation (NSTEMI) myocardial infarction (principal); I25.10 Atherosclerotic heart disease of native coronary artery without angina pectoris; E11.9 Type 2 diabetes mellitus without complications; E78.5 Hyperlipidemia, unspecified; F17.210 Nicotine dependence, cigarettes, uncomplicated; I10 Essential (primary) hypertension; I25.5 Ischemic cardiomyopathy; I25.2 Old myocardial infarction; Z80.8 Family history of malignant neoplasm of other organs or systems; Z82.49 Family history of ischemic heart disease and other diseases of the circulatory system; Z79.82 Long term (current) use of aspirin; Z79.899 Other long term (current) drug therapy; Z79.02 Long term (current) use of antithrombotics/antiplatelets; Z79.4 Long term (current) use of insulin; Z83.3 Family history of diabetes mellitus
CPT/HCPCS: 36415; 71045; 80048; 80053; 82150; 82550; 82553; 83690; 83735; 84484; 85025; 85379; 85610; 85730; 93005; 93306; 93458; 96365; 96375; 96376; 99291; C1874

== ENCOUNTER → 2019-11-23 | Outpatient (CLI) | payer BC ==
--- NOTE | 2019-11-23 16:03 | FL ---
EXAMINATION TYPE: FL sialography DATE OF EXAM: 11/23/2019 COMPARISON: None HISTORY: Swelling on right with JONG TECHNIQUE: 37 seconds of fluoroscopy time. Third T1 images. The procedure was explained to the patient the risks complications and benefits. All questions were a nswered. Informed consent was obtained. A timeout was performed. With plain technique the right salivary duct was easily cannulated with a 21-gauge sialogram blunt ca theter. Under fluoroscopy contrast was injected. Multiple fluoroscopic and overhead radiographs were obtained. Landry were provided and discharge instructions were discussed with the patient. The patie nt was released in stable condition having tolerated procedure very well. FINDINGS: No abrupt cut off is identified. No suspicious filling defects are evident. There appears t o be a normal branching pattern on the right. IMPRESSION: 1. Normal right Parotid (Stensen's) duct. No obstruction is identified. 2. Interior's duct was not cannulated at this time. The patient will be contacted and the procedure repeated at no additional charge to the patient. The office was notified by Dr. Baldwin at this depa rtment will coordinate with the patient to accomplish this.
== END | disposition home or self-care (01) ==
LOC: RADUSWWP 13:16
PROVIDERS: ATTEND Otolaryngology
DX: K11.5 Sialolithiasis (principal)

== ENCOUNTER → 2023-02-23 | Outpatient (CLI) | payer BC ==
--- NOTE | 2023-02-23 07:59 | CT ---
EXAMINATION TYPE: CT sinus wo con CT DLP: 602 mGycm, Automated exposure control for dose reduction was used. DATE OF EXAM: 02/23/2023 7:19 AM COMPARISON: None CLINICAL INDICATION:Male, 57 years old with history of J32.9 Chronic sinusitis, Chronic sinusitis TECHNIQUE: Multiple thin axial images were obtained through the paranasal sinuses without the use of IV contrast. Additional coronal and sagittal reformatted images were submitted for evaluation. Contrast used: none Oral contrast used: none FINDINGS: Frontal sinuses: Normally developed and aerated. Frontal Recess: Clear Modified Barbara-Aylin Score: Right 0 = 0% Opacified, Left 0 = 0% Opacified Maxillary Sinuses: Normally developed and aerated. Modified Barbara-Aylin Score: Right 0 = 0% Opacified, Left 2 = 26-50% Opacified Maxillary Infundibula([facility]): Mucosal thickening with partial obstruction on the right and complete ralf truction of the left., No Phoebe cells identified. Modified [place]-Fielding Score: Right 1 = Partially obstructed, Left 2 = Completely obstructed Ethmoid sinuses: Normally developed and aerated. Ethmoidal notch: Protected and abutting the lateral lamina. Modified [place]-Fielding Score: Anterior Right 1 = 1-25% Opacified, Left 1 = 1-25% Opacified Posterior Right 1 = 1-25% Opacified, Left 1 = 1-25% Opacified Sphenoid sinuses: Normally developed and aerated. There is sellar sphenoid sinus pneumatization witho ut evidence of dehiscence. No dehiscence of carotid canal. No evidence of optic nerve dehiscence wit hin the sphenoid sinus. No evidence of Onodi cells. Sphenoethmoidal recesses: Clear. Modified Barbara-Fielding Score: Right 1 = 1-25% Opacified, Left 1 = 1-25% Opacified. Nasal septum: Deviated leftward Nasal Turbinates: Mucosal thickening most pronounced in the middle and inferior turbinates. Mastoid air cells & middle ears: Partially visualized mastoid air cells appear clear. The middle ears are grossly unremarkable. Modified Soft tissues & Brain: Partially seen without gross abnormality. Globes are intact. Other: Cribriform plate demonstrates symmetric Keros classification type 3 cribriform plate. No evidence of bony dehiscence of skull base. Lamina papyracea is intact without evidence of remote orbital fracture or orbital prolapse into the e thmoid sinus. IMPRESSION: 1. Mild paranasal sinus disease. 2. Obstructed left and partially obstructed right ostiomeatal units, partially obstructed frontonasal bilaterally and sphenoethmoidal recesses partially obstructed. 3. Opacification burden of on the Modified [place]-Aylin scoring system.
== END | disposition home or self-care (01) ==
LOC: RADCTMAIN 07:00
PROVIDERS: ATTEND Otolaryngology
DX: J32.9 Chronic sinusitis, unspecified (principal); R91.8 Other nonspecific abnormal finding of lung field
CPT/HCPCS: 70486